=== PATIENT | male | born 1970 | race Caucasian/White ===

== ENCOUNTER 2017-02-23 03:18 | Emergency (ER) | payer BC, OTHER ==
[2017-02-23] MEDS ORDERED: Ondansetron 4 MG/2 ML SDV IVPUSH ONE (03:53)
--- NOTE | 2017-02-23 03:57 | EDM.PDOC ---
ED HPI GI/ABDOMINAL - General Chief Complaint: Gastrointestinal Problem Stated Complaint: THROWING UP Time Seen by Provider: 02/23/17 03:55 Source of Information: Reports: Patient, RN - History of Present Illness INITIAL COMMENTS - FREE TEXT/NARRATIVE: He presents to the emergency department today with a 4 hour history of vomiting and diarrhea. Several family members are similarly afflicted. - Related Data Allergies/ADRs: Allergies Allergy/AdvReac Type Severity Reaction Status Date / Time No Known Allergies Allergy Verified 02/23/17 03:28 Home Meds: Home Meds . [No Known Home Meds] 02/23/17 [History] Past Medical History - Past Health History Medical/Surgical History: Denies Medical/Surgical History Cardiovascular History: Reports: None. Denies: Bypass, CAD, Heart Failure, Heart murmur, Hypertension, [place] Respiratory History: Denies: COPD, Cystic Fibrosis Gastrointestinal History: Denies: Cirrhosis Neurological History: Denies: Alzheimers disease, CVA Endocrine/Metabolic History: Denies: [place]'s disease, Diabetes, type I, Diabetes, type II Oncologic (Cancer) History: Reports: None Social & Family History - Family History Family Medical History: Noncontributory - Tobacco Use Smoking Status *Q: Current Every Day Smoker Years of Tobacco use: 17 Packs/Tins Daily: 0.5 - Caffeine Use Caffeine Use: Reports: Coffee Caffeine Use Comment: 1cup/day - Alcohol Use Date/Time of Last Drink Comment: He states that he very rarely drinks any alcohol. - Recreational Drug Use Recreational Drug Use: No ED ROS GENERAL - Review of Systems Review Of Systems: See Below Constitutional: Denies: fever Respiratory: Denies: Shortness of Breath, Cough, Sputum Cardiovascular: Denies: Chest pain, Edema GI/Abdominal: Reports: Abdominal pain (Crampy type abdominal pain), Diarrhea, Nausea, Vomiting. Denies: Hematemesis ED EXAM, GI/ABD - Physical Exam Exam: See Below General Appearance: alert, no apparent distress Throat/Mouth: Normal inspection Head: atraumatic Neck: supple Respiratory/Chest: no respiratory distress, lungs clear, normal breath sounds, no accessory muscle use Cardiovascular: normal peripheral pulses, regular rate, rhythm, tachycardia GI/Abdominal: normal bowel sounds, non tender Neurological: alert, oriented, normal cognition Course - Vital Signs Last Recorded V/S: Last Vital Signs Temp 96.9 F 02/23/17 03:24 Pulse 119 H 02/23/17 03:24 Resp 18 02/23/17 03:24 BP 136/98 H 02/23/17 03:24 Pulse Ox 95 02/23/17 03:24 - Orders/Labs/Meds Orders: Active Orders 24 hr Category Date Time Status Cardiac Monitoring [RC] . DIRECTED Care 02/23/17 03:57 Active Sodium Chloride 0.9% [Normal Saline] 1,000 ml Med 02/23/17 04:00 Active IV ASDIRECTED Medication Orders Sodium Chloride (Normal Saline) 1,000 mls @ 500 mls/hr IV ASDIRECTED TAINA Last Admin: 02/23/17 03:45 Dose: 500 mls/hr Labs: Laboratory Tests 02/23/17 02/23/17 Range/Units 03:45 03:45 WBC 9.95 (4.0-11.0) K/uL RBC 5.71 (4.50-5.90) M/uL Hgb 17.2 H (13.0-17.0) g/dL Hct 50.2 H (38.0-50.0) % MCV 87.9 (80.0-98.0) fL MCH 30.1 (27.0-32.0) pg MCHC 34.3 (31.0-37.0) g/dL RDW Std Deviation 47.0 (28.0-62.0) fl RDW Coeff of Ida 15 (11.0-15.0) % Plt Count 247 (150-400) K/uL MPV 9.80 (7.40-12.00) fL Neut % (Auto) 88.2 H (48.0-80.0) % Lymph % (Auto) 6.9 L (16.0-40.0) % [place] % (Auto) 3.7 (0.0-15.0) % Eos % (Auto) 1.1 (0.0-7.0) % Baso % (Auto) 0.1 (0.0-1.5) % Neut # (Auto) 8.8 H (1.4-5.7) K/uL Lymph # (Auto) 0.7 (0.6-2.4) K/uL [place] # (Auto) 0.4 (0.0-0.8) K/uL Eos # (Auto) 0.1 (0.0-0.7) K/uL Baso # (Auto) 0.0 (0.0-0.1) K/uL Nucleated RBC % 0.0 /100WBC Nucleated RBCs # 0 K/uL Sodium 142 (136-146) mmol/L Potassium 4.4 (3.5-5.1) mmol/L Chloride 102 (98-110) mmol/L Carbon Dioxide 28 (21-31) mmol/L BUN 20 (6.0-23.0) mg/dL Creatinine 1.2 (0.6-1.5) mg/dL Est Cr Clr Drug Dosing 86.00 mL/min Estimated GFR (MDRD) > 60.0 ml/min Glucose 128 H (60-110) mg/dL Calcium 9.5 (8.8-10.8) mg/dL Magnesium 1.6 (1.5-2.3) mEq/L Total Bilirubin 0.7 (0.1-1.5) mg/dL AST 24 (5-40) IU/L ALT 34 (8-54) IU/L Alkaline Phosphatase 75 (40-150) Total Protein 7.7 (6.0-8.0) g/dL Albumin 4.5 (3.5-5.0) g/dL Globulin 3.2 (2.0-3.5) g/dL Albumin/Globulin Ratio 1.4 (1.3-2.8) Meds: Medications Generic Name Dose Route Start Last Admin Trade Name Freq PRN Reason Stop Dose Admin Sodium Chloride 1,000 mls @ 500 mls/hr 02/23/17 04:00 02/23/17 03:45 Normal Saline IV 500 mls/hr ASDIRECTED TAINA Administration Discontinued Medications Generic Name Dose Route Start Last Admin Trade Name Freq PRN Reason Stop Dose Admin Ondansetron HCl 8 mg 02/23/17 03:53 02/23/17 04:00 Zofran IVPUSH 02/23/17 03:54 8 mg ONETIME ONE Administration - Re-Assessments/Exams Free Text/Narrative Re-Assessment/Exam: 02/23/17 05:26 Heart rate is now in the 90s. He states he feels better. His nausea is improved Departure - Departure Time of Disposition: 05:26 Disposition: Home, Self-Care 01 Clinical Impression: Gastroenteritis Forms: ED Department Discharge Additional Instructions: Zofran ODT 4 mg every 4 hours when necessary dispense 6 one refill Clear liquid diet. Advance diet as tolerated. Off work until Saturday. Recheck if not improving. - My Orders Last 24 Hours: My Active Orders 02/23/17 03:57 Cardiac Monitoring [RC] . DIRECTED 02/23/17 04:00 Sodium Chloride 0.9% [Normal Saline] 1,000 ml IV ASDIRECTED - Assessment/Plan Last 24 Hours: My Active Orders 02/23/17 03:57 Cardiac Monitoring [RC] . DIRECTED 02/23/17 04:00 Sodium Chloride 0.9% [Normal Saline] 1,000 ml IV ASDIRECTED
[2017-02-23] MEDS ORDERED: Sodium Chloride 0.9% 1,000 ML IV SCH (04:00)
[2017-02-23 04:20] LABS: CHLORIDE,CL 102 mmol/L (98-110); SODIUM,NA 142 mmol/L (136-146)
[2017-02-23 06:10] VITALS: BP 130/75
== END 2017-02-23 06:04 | disposition home or self-care (01) ==
LOC: MW.ED 03:18
DX: K52.9 Noninfective gastroenteritis and colitis, unspecified (principal); F17.210 Nicotine dependence, cigarettes, uncomplicated
CPT/HCPCS: 36415; 80053; 83735; 85025; 96361; 96374; 99284; J2405; J7040; 99283

== ENCOUNTER 2023-02-11 16:51 | Emergency (ER) | payer BC ==
[2023-02-11 18:45] VITALS: BP 151/90
[2023-02-11] MEDS ORDERED: Diphtheria,Pertussis(Acell),Tetanus Vaccine 0.5 ML Syringe IM ONE (18:53)
[2023-02-12 04:53] VITALS: PULSE 67
== END 2023-02-11 19:07 | disposition home or self-care (01) ==
LOC: MW.ED 16:51
DX: S61.411A Laceration without foreign body of right hand, initial encounter (principal); E78.00 Pure hypercholesterolemia, unspecified; I10 Essential (primary) hypertension; Z23 Encounter for immunization; Z72.0 Tobacco use; Z79.899 Other long term (current) drug therapy; W26.0XXA Contact with knife, initial encounter
CPT/HCPCS: 12002; 90471; 90715; 99282-25; 99283